=== PATIENT | male | born 1935 | race Caucasian/White ===

== ENCOUNTER 2019-01-30 01:03 | Emergency (ER) | payer MEDICARE, BC ==
[~2019-01-30] VITALS: Ht 182.9 cm; Wt 73.6 kg
[~2019-01-30 01:03] MED LIST changes: -AMBIEN 10MG10 MG PO; -ASPIRIN E.C. 8181 MG PO; -CELEBREX 1100 MG/CAP PO; -DEMADEX 20MG20 M1 PO; -FLEXERIL 1010 MG/TAB PO; -NORCO 325 MG-51 TAB PO; -ULTRAM 50MG TAB50 MG PO
[2019-01-30 01:08] VITALS: TEMP 97.1
[2019-01-30] MEDS ORDERED: AMBIEN 5MG TABLE5 MG PO (01:21)
[2019-01-30] MEDS ORDERED: AMBIEN 10MG10 MG PO (01:33)
[2019-01-30] MEDS ORDERED: ULTRAM 50MG TAB50 MG PO (01:35)
[2019-01-30] MEDS ORDERED: DEMADEX 20MG20 M1 PO (01:35)
[2019-01-30] MEDS ORDERED: LIPITOR20 MG PO (01:35)
[2019-01-30] MEDS ORDERED: CLARITIN 1010 MG/TAB PO (01:35)
[2019-01-30] MEDS ORDERED: CELEBREX 1100 MG/CAP PO (01:36)
[2019-01-30] MEDS ORDERED: ASPIRIN E.C. 8181 MG PO (01:36)
[2019-01-30] MEDS ORDERED: TOPROL XL 25MG25 MG PO (01:36)
[2019-01-30 02:29] LABS: BASO # 0.1 (0.0-0.2); BASO % 0.7 % (0.0-2.0); EOS # 0.1 (0.0-0.7); EOS % 1.1 % (0-4.0); GRAN # 7.6 (1.4-6.5); GRAN % 83.8 % (42.2-75.2); HEMATOCRIT 39.7 % (42.0-52.0); HEMOGLOBIN 13.3 g/dl (13.5-18.0); LYMPH # 0.6 (1.2-3.4); LYMPH % 6.5 % (20.0-51.0); MEAN CELL VOLUME 92 fl (80.0-100.0); MEAN CORPUSCULAR HEMOGLOBIN 31 pg (27.0-31.0); MEAN CORPUSCULAR HGB CONC 34 g/dl (33.0-37.0); MEAN PLATELET VOLUME 12.1 fl (7.4-10.4); MONO # 0.7 (0.1-0.6); MONO % 7.7 % (1.7-9.3); PLATELET COUNT 157 K/mm3 (130-400); RED BLOOD COUNT 4.34 M/mm3 (4.20-5.60); REDCELL DISTRIBUTION WIDTH-CV 13.2 % (11.5-14.5)
[2019-01-30 02:37] LABS: INR 1.2 (0.8-3.0); PROTHROMBIN TIME 13.6 SECONDS (9.7-12.8)
[2019-01-30 02:46] LABS: ALBUMIN 3.8 gm/dL (3.5-5.0); BILIRUBIN,TOTAL 0.8 mg/dL (0.0-1.0); CALCIUM 8.9 mg/dL (8.4-10.2); CREATININE, serum 0.45 (0.66-1.25); PHOSPHOROUS 3.2 mg/dL (2.5-4.5); POTASSIUM 3.5 mmol/L (3.4-5.0); TOTAL PROTEIN 6.4 gm/dL (6.4-8.2)
[2019-01-30 03:35] LABS: COLLECTION METHOD CLEAN CATCH
[2019-01-30 03:40] LABS: MUCOUS Present /lpf; PH 6 (5-8); SQUAMOUS EPITHELIAL None Seen /hpf; URINE APPEARANCE Clear; URINE BACTERIA Rare /hpf; URINE BILIRUBIN Negative (NEGATIVE); URINE BLOOD Negative (NEGATIVE); URINE COLOR Yellow; URINE GLUCOSE Negative (NEGATIVE); URINE KETONE Negative (NEGATIVE); URINE LEUKOCYTE ESTERASE Negative (NEGATIVE); URINE NITRATE Negative (NEGATIVE); URINE PROTEIN(semi-quant) Negative (NEGATIVE); URINE RBC 0-2 /hpf; URINE UROBILINOGEN Negative (NEGATIVE)
[2019-01-30] MEDS ORDERED: FLEXERIL 1010 MG/TAB PO (05:03)
[2019-01-30] MEDS ORDERED: NORCO 325 MG-51 TAB PO (05:03)
[2019-01-30 05:27] VITALS: BP 110/68; PULSE 66
== END 2019-01-30 05:30 | disposition home or self-care (01) ==
LOC: COL.ER 01:03
PROVIDERS: Emergency Medicine
DX: M79.652 Pain in left thigh (principal); Z95.0 Presence of cardiac pacemaker
CPT/HCPCS: J1650; J2060; J2270; J7030

== ENCOUNTER → 2019-01-30 | Outpatient (CLI) | payer MEDICARE, BC ==
[~2019-01-30] MED LIST: "\\\"STATIN\\\"" PO; AMBIEN 10MG10 MG PO; AMBIEN 5MG TABLE5 MG PO; AMBIEN5 MG PO; ASPIRIN 81M81 MG/TA2 PO; ASPIRIN E.C. 8181 MG PO; BUMEX2 MG PO; CELEBREX 1100 MG/CAP PO; CELEBREX 200MG200 MG PO; CEPHALEXIN500 M1 PO; CLARITIN 1010 MG/TAB PO; DEMADEX 20MG20 M1 PO; DOXYCYCLINE100 M2 PO; FLEXERIL 1010 MG/TAB PO; LIPITOR20 MG PO; MULTI VITAMINS1 TAB PO; MULTI-FLAVOR CH1 CTB PO; NEXIUM PO; NORCO 325 MG-51 TAB PO; PLAVIX 75MG TAB75 MG PO; PRINIVIL2.5 MG PO; TOPROL XL 25MG25 MG PO; TYLENOL 500MG500 MG PO; ULTRAM 50MG TAB50 MG PO; VITAMIN B COMPL1 T16 PO; VITAMIN C500 MG PO; VITAMIN D31000 IU PO
== END ==
LOC: COL.VAS 13:15
DX: Z13.6 Encounter for screening for cardiovascular disorders (principal); M62.89 Other specified disorders of muscle; M79.89 Other specified soft tissue disorders

== ENCOUNTER 2020-12-17 14:35 | Outpatient (RCR) | payer MEDICARE, BC ==
[~2020-12-17 14:35] MED LIST changes: +AMBIEN 10MG10 MG PO; +ASPIRIN E.C. 8181 MG PO; +CELEBREX 1100 MG/CAP PO; +DEMADEX 20MG20 M1 PO; +FLEXERIL 1010 MG/TAB PO; +NORCO 325 MG-51 TAB PO; +ULTRAM 50MG TAB50 MG PO
== END 2021-03-17 | disposition still patient (30) ==
LOC: MKS.ESL.OT
DX: M75.102 Unspecified rotator cuff tear or rupture of left shoulder, not specified as traumatic (principal); R29.898 Other symptoms and signs involving the musculoskeletal system; M62.81 Muscle weakness (generalized); B91 Sequelae of poliomyelitis; M12.812 Other specific arthropathies, not elsewhere classified, left shoulder

== ENCOUNTER 2021-04-14 10:30 | Outpatient (RCR) | payer MEDICARE, BC | END 2021-04-24 13:47 | disposition home or self-care (01) | LOC: WSPT 10:30 | DX: I42.9 Cardiomyopathy, unspecified (principal); M79.606 Pain in leg, unspecified; M79.89 Other specified soft tissue disorders ==